=== PATIENT | male | born 1990 | race Caucasian/White ===

== ENCOUNTER 2022-02-24 20:26 | Emergency (ER) | payer MEDICAID ==
[~2022-02-24] VITALS: Ht 177.8 cm; Wt 189.0 kg
[2022-02-24] MEDS ORDERED: LIDOCAINE HCL/EPINEPHRINE 1%-EPI 1:100,000 20 ML VIAL INFIL ONE (21:15)
[2022-02-24] MEDS ORDERED: IBUPROFEN 400MG TABLET PO ONE (21:15)
[2022-02-24] MEDS ORDERED: ACETAMINOPHEN 325MG TABLET PO ONE (21:15)
[2022-02-24] MEDS ORDERED: TETANUS, DIPHTHERIA, PERTUSSIS VAC/PF 0.5ML (>10YR OLD) IM ONE (21:15)
[2022-02-24] MEDS ORDERED: LIDOCAINE HCL/EPINEPHRINE 1%-EPI 1:100,000 10 ML VIAL IJ NR (21:27)
[2022-02-24 21:35] VITALS: BP 153/99
[2022-02-25] MEDS ORDERED: BO1 TP (01:22)
== END 2022-02-25 01:41 | disposition home or self-care (01) ==
LOC: ER 20:26
DX: S81.022A Laceration with foreign body, left knee, initial encounter (principal); I10 Essential (primary) hypertension; E11.9 Type 2 diabetes mellitus without complications; W01.0XXA Fall on same level from slipping, tripping and stumbling without subsequent striking against object, initial encounter; Y93.89 Activity, other specified; Y92.89 Other specified places as the place of occurrence of the external cause; Y99.8 Other external cause status
CPT/HCPCS: 12031; 73560; 90471; 90715; 99284; J3490; 96372